=== PATIENT | male | born 1965 | race Caucasian/White ===

== ENCOUNTER → 2016-12-11 10:49 | Outpatient (CLI) | payer MEDICAID ==
[~2016-12-11 10:49] MED LIST: BAYER CHEWABLE81 MG PO; COZAAR100 MG PO; CYCLOBENZAPRINE10 MG PO; HYDROCHLOROTH12.5 M1 PO; HYDROCODONE-APA1 TAB PO; LIPITOR40 MG PO; NORCO 7.5/325 T1 TA1 PO; NORVASC5 MG PO; VITAMIN D2000 UNIT PO
[2016-12-28 06:17] VITALS: BMI 26.7
== END | disposition home or self-care (01) ==
LOC: D.MRI 10:49
DX: M25.511 Pain in right shoulder (principal)

== ENCOUNTER 2016-12-28 05:21 | Day surgery (SDC) | payer MEDICAID ==
[2016-12-27 11:31] LABS: HEMATOCRIT 46.4 % (42.0-54.0); HEMOGLOBIN 15.7 g/dL (13.5-17.5); MCH 32.1 pg (26.0-34.0); MCHC 33.8 g/dL (31.0-37.0); MCV 94.9 fL (80.0-100.0); MEAN PLATELET VOLUME 10.8 fL (7.4-10.4); RBC 4.89 10x6/uL (4.20-6.10); RDW 12.1 % (11.5-14.5); WBC 9.2 10x3/uL (4.8-10.8)
[2016-12-27 11:49] LABS: CALCIUM 9.5 mg/dL (8.5-10.1); CARBON DIOXIDE 31.9 mmol/L (21.0-32.0); CREATININE - SERUM 1.3 mg/dL (0.6-1.3); POTASSIUM - SERUM 3.9 mmol/L (3.5-5.1)
[~2016-12-28] VITALS: Ht 177.8 cm; Wt 84.4 kg
[~2016-12-28 05:21] MED LIST changes: -CYCLOBENZAPRINE10 MG PO; -HYDROCODONE-APA1 TAB PO
[2016-12-28 06:17] VITALS: BP 125/80; Ht 177.8 cm; Wt 84.4 kg
--- NOTE | 2016-12-28 08:00 | NUR ---
BEACHCHAIR ATTACHMENT ON BED FOR POSITIONING.
[2016-12-28] MEDS ORDERED: HYDROCODONE-APA1 TAB PO (08:30)
[2016-12-28] MEDS ORDERED: CYCLOBENZAPRINE10 MG PO (08:30)
--- NOTE | 2016-12-28 11:58 | NUR ---
1015 IV DC WITH CATHER TIP INTACT
--- NOTE | 2016-12-28 12:08 | NUR ---
0930 IV DC WITH CATHER TIP INTACT
--- NOTE | 2016-12-30 10:16 | OP ---
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 POSTOPERATIVE DIAGNOSES: Right shoulder degenerative joint disease, right shoulder impingement, acromioclavicular joint degenerative joint disease and labral tear. PROCEDURE PERFORMED: Right shoulder distal clavicle excision and subacromial decompression with labral debridement. SURGEON: Justin Quiroz MD ANESTHESIA: General with interscalene block for postop pain. CONDITION: The patient tolerated the procedure well, was transferred to recovery room in stable condition at termination of the procedure. INDICATIONS: This is a 51-year-old gentleman, who has had significant pain especially with overhead activities, this is not getting better. We discussed the options. He wanted to proceed with surgery. We discussed risks, benefits, and alternatives. He understood and wished to proceed. OPERATIVE REPORT: The patient was taken to the operating room and placed in supine position. General anesthesia was obtained. He did have an interscalene block placed in the preop holding area. In the operating room, his right shoulder was confirmed to be the correct shoulder. He was prepped and draped in normal fashion. Procedure was begun by marking out portal sites and then injecting them with 0.25% Marcaine with epinephrine. I then proceeded to place the scope in the posterior portal. Under direct visualization, I established an anterior portal. The glenohumeral joint was inspected. He did have some tearing off the anterior labrum. I did debride this with a shaver. The biceps tendon was intact. There were no lesions on it. Pulling and tugging on the tendon could not find any tears going down that extended to either. The cuff was inspected. The subscapularis was intact, coming up under the supraspinatus and extending all the way back around the shoulder following the infraspinatus and back into the teres area, the muscle was all intact. There were fibers noted coming into the humeral head throughout. He did have an osteochondral lesion on the top of this humeral head. The glenohumeral joint, otherwise, cartilage looked good. Following this, we pulled the scope out, placed it in the subacromial space and then the lateral portal. I did debride the soft tissue under the acromion. I took off the undersurface of the acromion over to the AC joint. He clearly had an extension of the clavicle down into the cuff. This was debrided from both the lateral and the anterior portal such that there was a good gap between the 2, clearly visualized with no bone contact. I then inspected the cuff again and again did not find any tears; therefore, I brought the case to a close. He was closed with 3-0 Prolene, placed in a soft dressing sling, awakened and transferred to recovery room in stable condition, having tolerated procedure well. TRANSINT:[id number] Voice Confirmation ID: [id number] DOCUMENT ID: [id number] OPERATIVE REPORT [id number] ARGENTNIA CHÁVEZ, YUSEF HATHAWAY MD at 1016 CC: [id number] DICTATION DATE: 12/28/16 0844 VARSITY BASEBALL COACH: 12/28/16 1440 [facility] 12/28/16 [facility] [address] [place] [address]
== END 2016-12-28 10:00 | disposition home or self-care (01) ==
LOC: D.OPS 05:21 → D.PAN 09:30 → D.OPS 10:00
PROVIDERS: Anesthesiology
DX: M19.011 Primary osteoarthritis, right shoulder (principal); M75.41 Impingement syndrome of right shoulder; S43.491A Other sprain of right shoulder joint, initial encounter

== ENCOUNTER → 2017-04-18 08:36 | Outpatient (CLI) | payer MEDICAID ==
[2016-12-28 06:17] VITALS: BMI 26.7
[~2017-04-18 08:36] MED LIST changes: +CYCLOBENZAPRINE10 MG PO; +HYDROCODONE-APA1 TAB PO
== END ==
LOC: D.MRI 08:36
DX: M47.12 Other spondylosis with myelopathy, cervical region (principal)

== ENCOUNTER 2017-10-08 05:45 | Inpatient (IN) | payer MEDICAID ==
[2017-10-07 13:22] LABS: HEMATOCRIT 49.1 % (42.0-54.0); HEMOGLOBIN 17.2 g/dL (13.5-17.5); MCH 33.3 pg (26.0-34.0); MEAN PLATELET VOLUME 11.2 fL (7.4-10.4); RBC 5.17 10x6/uL (4.20-6.10); RDW 11.8 % (11.5-14.5); WBC 9.7 10x3/uL (4.8-10.8)
[2017-10-07 13:43] LABS: ANION GAP 13.2 mmol/L (8-16); CALCIUM 9.6 mg/dL (8.5-10.1); CARBON DIOXIDE 30.3 mmol/L (21.0-32.0); CREATININE - SERUM 1.4 mg/dL (0.6-1.3); POTASSIUM - SERUM 3.5 mmol/L (3.5-5.1)
[2017-10-08] VITALS (18 sets, daily range): BP systolic 109–142; BP diastolic 54–90; BMI 26.6
[~2017-10-08] VITALS: Ht 177.8 cm; Wt 86.2 kg
[~2017-10-08 05:45] MED LIST changes: +K-TAB10 MEQ PO
--- NOTE | 2017-10-08 11:08 | NUR ---
PT ARRIVED BY BED. SWITCHED OVER TO ICU MONITORS. ASSESSMENT COMPLETED. PT ALERT AND ORIENTED AT THIS TIME.
--- NOTE | 2017-10-08 17:04 | NUR ---
WILL TAKE OVER CARE OF PT FROM AMADOU ALBRIGHT RN. PT SITTING UP IN BED VISITING WITH HIS . NO NEEDS AT THIS TIME. TOLERATING A CLEAR LIQUID DIET. CALL LIGHT WITHIN REACH.
--- NOTE | 2017-10-08 19:15 | NUR ---
REPORT RECEIVED AND CARE ASSUMED INITIAL SHIFT ASSESSMENT COMPLETED SEE FLOWSHEET. PT WITH INCISION TO RIGHT SIDE OF NECK, BONDED AND WNL. PT BEING MONITORED PER STANDARD CVICU PROTOCOL WTIH ALL ALARMS SET AND VERIFIED. PT ADMITS TO COME NECK DISCOMFORT BUT STATES HE DOES NOT WISH FOR ANY MEDICATION AT THIS TIME AND WILL LET ME KNOW WHEN HE IS READY. IV LINES AND FLUIDS ARE CORRECTLY LABELED AND DATED AND ARE CURRENT. BED IS IN LOW POSITION. PT HAS BEEN UP TO BATHROOM. PT VERBALIZED NO DISCOMFORT VOIDING AND KNOWS TO WEAR CERIVICAL COLLAR WHEN OOB. SOFT CERVICAL COLLAR IS ON BEDSIDE TABLE. PT IS TOLERATING CL DIET DENIES NAUSEA CALL LIGHT IN REACH PT INSTRUCTED TO CALL FOR ANY NEEDS. SCD'S CONNECTED AND INITIATED.
--- NOTE | 2017-10-08 21:00 | NUR ---
PT RESTING AT THIS TIME. RESP REG AND NONLABORED. INCISON SITE REMAINS WNL. NO COMPLAINTS AT THIS TIME.
--- NOTE | 2017-10-08 23:00 | NUR ---
SHIFT REASSESSMENT COMPLETED SEE FLOWSHEET. NO SIGNIFICANT CHANGES. PT RESTING AT THIS TIME. NO VISITORS THIS EVENING BUT HAS COMMUNICATED WITH FAMILY/FRIENDS PER HIS CELL PHONE
[2017-10-09] VITALS (10 sets, daily range): BP systolic 111–148; BP diastolic 54–89; Ht 177.8 cm; Wt 86.2 kg
--- NOTE | 2017-10-09 03:00 | NUR ---
SHIFT REASSESSMENT COMPLETED NO SIGNIFICANT CHANGES SEE FLOWSHEET
--- NOTE | 2017-10-09 04:00 | NUR ---
PT DENIES NEEDS AT THIS TIME INCISION SITE WNL I&O RETREIVED FOR CHARTING.
--- NOTE | 2017-10-09 07:15 | NUR ---
SHIFT ASSESSMENT VIA FLOWSHEET, SEE FOR DETAILS. VSS. PT SITTING IN CHAIR AT BEDSIDE, SOFT COLLAR IN PLACE. CALL LIGHT WITHIN REACH.
--- NOTE | 2017-10-09 08:20 | NUR ---
PT'S AT BEDSIDE, UPDATE PROVIDED. PT VOICES NO ADDITIONAL NEEDS AT THIS TIME. VSS. CALL LIGHT WITHIN REACH.
--- NOTE | 2017-10-09 09:25 | NUR ---
DISCHARGE TEACHING PROVIDED, PT VERBALIZES UNDERSTANDING. PIV D/C'D WITH CATH TIP INTACT.
--- NOTE | 2017-10-09 09:40 | NUR ---
PT TO FRONT ENTRANCE VIA WHEELCHAIR, SOFT COLLAR IN PLACE. PT DISCHARGED WITH ONE CELL PHONE AND ONE PAIR OF GLASSES ON HIS PERSON.
--- NOTE | 2017-10-16 09:58 | OP ---
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 PROCEDURE: Anterior cervical discectomy and fusion at C5-C6 and C6-C7 with removal of osteophytes, separate anterior cervical plate, PEEK interbody cages at C5-C6 and C6-C7, 7 mm x 6 degrees lordosis, Biocell Dennise bone allograft in each separate PEEK interbody cage, midline cervical plate. SURGEON: Gaudencio Sampson MD DESCRIPTION OF TECHNIQUE: After induction of general endotracheal anesthesia, the patient was positioned supine on the operating table. Neck was prepped and draped in usual sterile fashion. Fluoroscopic x-ray and freer dissector localized the C5 vertebral body. A skin incision was carried out from the midline to the sternocleidomastoid muscle. Using blunt and sharp dissection with Metzenbaum scissors, I proceeded in an avascular plane medial to the carotid sheath. [place] distracting pins were placed in the body of the C5, C6, and C7. The disc space was incised at each level with #11 blade and a series of pituitary rongeurs and curettes were used to remove the disc material at C5-C6 and C6-C7. Osteophytes were drilled away posteriorly with Midas-Mauricio drill and a microscope. The posterior longitudinal ligament was removed with Cloward rongeurs. Following this, the dura was decompressed well. A PEEK interbody cage was filled with Biocell stem cell bone graft allograft at separate PEEK cage at C5-C6 and C6-C7. Separate anterior cervical plate and screw was used to span the C5, C6 and C7 vertebral bodies. Self-drilling screws, 3 separate screws, were placed through the plate. Locking cams were tightened down to each screw head, good position of the hardware was confirmed with fluoroscopic x-ray. Meticulous hemostasis was maintained throughout the wound. The platysma and subdermal layer were closed with interrupted 3-0 Vicryl suture. The skin was reapproximated with Steri-Strips and Benzoin. A sterile dressing was applied to the wound. The patient was awakened in good condition and taken to recovery. All counts were reported as correct. Estimated blood loss was minimal. TRANSINT:[id number] Voice Confirmation ID: [id number] DOCUMENT ID: [id number] GAUDENCIO SAMPSON MD at 0958 CC: [id number] DICTATION DATE: 10/15/172147 DEFLASH AND WASH OPERATOR: 10/16/17 0159 DIS IN 10/09/17 [place] [id number] [place] [id number]
--- NOTE | 2017-12-06 15:43 | DS ---
PATIENT:ARGENTINA CHÁVEZ :61 MEDICAL RECORD: [id number] DISCHARGE SUMMARY ADMISSION DATE: 10/08/17 DISCHARGE DATE: 10/09/17 ADMISSION DIAGNOSES: Osteophyte formation and disc herniation at C5-C6 and C6-C7. DISCHARGE DIAGNOSES: Status post anterior cervical discectomy and fusion at C5-C6 and C6-C7. HOSPITAL COURSE: The patient was admitted as an outpatient for the cervical surgery, tolerated the procedure well overnight in the ICU. He was discharged home on the following morning with return to clinic with Dr. Sampson in 2 weeks. DISCHARGE MEDICATIONS: [place] 10, 1-2 every 3 hours p.r.n. for pain. DIET: Regular. TRANSINT:[id number] Voice Confirmation ID: [id number] DOCUMENT ID: [id number] GAUDENCIO SAMPSON MD at 1543 CC: [id number] DICTATION DATE: 12/04/17 1155 FIELD SERVICE COORDINATOR: 12/05/17 0025 DIS IN 10/09/17 [place] [id number] [place] [address]
== END 2017-10-09 09:40 | disposition home or self-care (01) | DRG 473 ==
LOC: D.CVICU 05:45 → D.SDCHOLD 05:45 → D.CVICU 10:38
PROVIDERS: Anesthesiology; ADMIT Neurological Surgery
PROC: 0RG20K0 Fusion of 2 or more Cervical Vertebral Joints with Nonautologous Tissue Substitute, Anterior Approach, Anterior Column, Open Approach (ICD-10-PCS; 2017-10-08)
PROC: 0RB30ZZ Excision of Cervical Vertebral Disc, Open Approach (ICD-10-PCS; 2017-10-08)
PROC: 0RG20A0 Fusion of 2 or more Cervical Vertebral Joints with Interbody Fusion Device, Anterior Approach, Anterior Column, Open Approach (ICD-10-PCS; principal; 2017-10-08 07:30)
DX: M50.122 Cervical disc disorder at C5-C6 level with radiculopathy (principal); M50.123 Cervical disc disorder at C6-C7 level with radiculopathy; M25.78 Osteophyte, vertebrae; M48.02 Spinal stenosis, cervical region

== ENCOUNTER → 2017-12-18 07:30 | Outpatient (CLI) | payer MEDICAID ==
[2017-10-09 09:18] VITALS: BMI 27.2
== END | disposition home or self-care (01) ==
LOC: D.MRI 07:30
DX: M54.12 Radiculopathy, cervical region (principal)

== ENCOUNTER → 2018-09-01 10:03 | Outpatient (CLI) | payer MEDICAID ==
[2017-10-09 09:18] VITALS: BMI 27.2
== END | disposition home or self-care (01) ==
LOC: D.CT 08-28 14:30
DX: I73.9 Peripheral vascular disease, unspecified (principal)

== ENCOUNTER → 2018-09-11 08:19 | Outpatient (CLI) | payer MEDICAID ==
[2017-10-09 09:18] VITALS: BMI 27.2
== END | disposition home or self-care (01) ==
LOC: D.MRI 08:19
DX: M54.5 Low back pain (principal)